=== PATIENT | male | born 1950 | race Caucasian/White ===

== ENCOUNTER → 2021-07-19 09:17 | Outpatient (BNVA) | payer MEDICARE, SELFPAY | PROVIDERS: PCP Internal Medicine; Visit Provider Surgery | DX: K62.5 Hemorrhage of anus and rectum (principal) | CPT/HCPCS: 99202 ==

== ENCOUNTER 2021-09-14 07:42 | Day surgery (SDC) | payer MEDICARE, SELFPAY ==
--- NOTE | 2021-09-13 10:30 | HO.ANESPROP2 ---
Documented by User: Haley Power NP 09/13/21 10:30 HPI - Anesthesia Eval Consult details Narrative: 70yo M for Colonoscopy PMFSH Active Problems Active Problems: All Active Problems (Updated 07/19/21 @ 10:03 by Vini Lombardo MD) Rectal bleeding (Acute) Family history of colon cancer (Acute) Hypertension (Acute) Diverticular disease (Acute) Past Medical History Medical History Diverticular disease Family history of colon cancer Hypertension Rectal bleeding Surgical History Surgical History (Updated 09/14/21 @ 08:39 by Soraya Mike MD) H/O colonoscopy Hx of right inguinal hernia repair Hx of ventral hernia repair S/P total knee replacement Social History Social History Advance Directives: No Advance Directives Information Provided: Yes Meds Allergies Allergy/AdvReac Type Severity Reaction Status Date / Time lisinopril [LISINOPRIL] Allergy Severe ANAPHYLAXIS Verified 09/14/21 08:53 valsartan [From DIOVAN] Allergy Severe ANAPHYLAXIS Verified 09/14/21 08:53 morphine [MORPHINE] AdvReac Intermediate VOMITING Verified 09/14/21 08:53 Home Medications Medication Instructions Recorded Confirmed Last Taken Type aspirin 81 mg tablet,delayed 81 mg PO DAILY 07/19/21 09/07/21 Unknown History release carvedilol 25 mg tablet 25 mg PO BID 07/19/21 09/07/21 Unknown History eplerenone 25 mg tablet 25 mg PO DAILY 07/19/21 09/07/21 Unknown History furosemide 40 mg tablet 40 mg PO DAILY 07/19/21 09/07/21 Unknown History Exam Exam Date and Time: September 13, 2021 1030 Height,Weight and Vital Signs: Weight 98.883 kg Assessment and Plan Assessment Anesthesia Assessment: Chart Reviewed Documented by User: Soraya Mike MD 09/14/21 09:21 PMFSH Active Problems Active Problems: All Active Problems (Updated 07/19/21 @ 10:03 by Vini Lombardo MD) Rectal bleeding (Acute) Family history of colon cancer (Acute) Hypertension (Acute) Diverticular disease (Acute) KOURTNEY. On CPAP Past Medical History Medical History Diverticular disease Family history of colon cancer Hypertension Rectal bleeding Family History Family history of problems with anesthesia: No Surgical History Surgical History (Updated 09/14/21 @ 08:39 by Soraya Mike MD) H/O colonoscopy Hx of right inguinal hernia repair Hx of ventral hernia repair S/P total knee replacement History of Problems with Anesthesia: Yes (Slow awakening ) Social History Social History Advance Directives: No Advance Directives Information Provided: Yes Meds Allergies Allergy/AdvReac Type Severity Reaction Status Date / Time lisinopril [LISINOPRIL] Allergy Severe ANAPHYLAXIS Verified 09/14/21 08:53 valsartan [From DIOVAN] Allergy Severe ANAPHYLAXIS Verified 09/14/21 08:53 morphine [MORPHINE] AdvReac Intermediate VOMITING Verified 09/14/21 08:53 Home Medications Medication Instructions Recorded Confirmed Last Taken Type aspirin 81 mg tablet,delayed 81 mg PO DAILY 07/19/21 09/07/21 Unknown History release carvedilol 25 mg tablet 25 mg PO BID 07/19/21 09/07/21 Unknown History eplerenone 25 mg tablet 25 mg PO DAILY 07/19/21 09/07/21 Unknown History furosemide 40 mg tablet 40 mg PO DAILY 07/19/21 09/07/21 Unknown History Exam Height,Weight and Vital Signs: Height 5 ft 7 in Weight 92.986 kg Vital Signs Temp Pulse Resp BP Pulse Ox O2 Del Method 09/14/21 08:39 97.5 F 72 18 160/92 H 95 Room Air Airway Mallampati Class: II TM Dist: >3cm Neck ROM: Full Denture: Upper Loose/Missing/Broken Teeth: No (No loose or broken lower teeth per patient ) Heart: RRR Lungs: CTAB Assessment and Plan Assessment Anesthesia Assessment: Anesthesia Plan Discussed Final Anesthetic Review Family History of Problems with Anesthesia: No History of Problems with Anesthesia: Yes (Slow awakening ) NPO: Yes ASA Class: III Final Preanesthetic Review: No Changes in Pt Med Stat, Meds/Allgs Chart Reviewed, Consent Obtained/Reviewed and Anes Risks/Benef Reviewed Patient Risk: Intermediate Procedure Risk: Low Assessment/Block/Sedation in SS: Assess/Block/Sedation-SS Anesthetic Plan Anesthetic Plan: MAC: Disposition: Standard PACU
[2021-09-14 08:39] VITALS: BP 160/92; PULSE 72; RESP 18; TEMP 36.4; O2SAT 95; BMI 32.1
[2021-09-14] MEDS: Lactated Ringers 1,000 ML 100 ML IVCONT (08:52)
--- NOTE | 2021-09-14 08:57 | MHC.SHP ---
Pre-Procedural Eval Section A Date of Service: 09/14/21 Section B Chief Complaint: bleeding Details of Present Illness: had passage of blood per rectum, FH of colon ca Relevant Family History (Specify if Yes): Yes Relevant Social History: None Present Medications: see Short Stay Collaborative assessment Medical History: Significant History (HTN, diverticular ds) Allergies: Allergies Allergy/AdvReac Type Severity Reaction Status Date / Time lisinopril [LISINOPRIL] Allergy Severe ANAPHYLAXIS Verified 09/14/21 08:53 valsartan [From DIOVAN] Allergy Severe ANAPHYLAXIS Verified 09/14/21 08:53 morphine [MORPHINE] AdvReac Intermediate VOMITING Verified 09/14/21 08:53 Review of Systems Sugical H&P ROS: Negative: Constitution, Cardiovascular, Respiratory, Neurological, Psychiatric, Hem-Onc, Allergic/Immunologic, Genitourinary, Musculoskeletal, Integumentary, Endocrine and Eyes/Ears/Nose/Throat and Yes, Specify: Gastrointestinal (hx of blood per rectum) Exam Surgical H&P Exam: Normal: HEENT, Normal: Heart, Normal: Lungs, Normal: Extremities, Normal: Abdomen, Normal: Skin and Normal: Neurological Plan Diagnosis/Plan: Unchanged I have reviewed the history and physical and performed a pertinent physical examination on my patient. No changes have occurred unless specified.
--- NOTE | 2021-09-14 09:27 | W.PM.OPN ---
Operative Note Operative Note Date of Service: 09/14/21 Narrative: Preop Diagnosis: family history of colon cancer, passage of blood per rectum Postop diagnosis: 1. Moderate to severe diverticulosis of the sigmoid 2. large hemorrhoids, mostly external Procedure: Colonoscopy Surgeon: Vini Lombardo MD The patient is a 70-year-old male who undergoes screening colonoscopies every 5 years because of a family history. He also had described passage of blood blood per rectum past. He understood the technique of colonoscopy. He was aware of the risks, benefits, and alternatives He was brought to the operating room and placed in left lateral decubitus position under monitored anesthesia care. A full digital rectal exam was done. He did have large hemorrhoids, most external with some internal. The tip of the Olympus colonoscope was gently introduced through the anal orifice advanced with insufflation all the cecum. The cecum was intubated. The cecum was identified by visualization of the ileocecal valve as well as the appendiceal orifice. The cecal mucosa was unremarkable. The scope was gradually withdrawn with careful examination of the entire colonic mucosa being done with scope withdrawal. The patient had adequate bowel prep so it was unlikely that any lesion may have been missed. There was some patchy areas of her 3 month throughout the entire colon. There were no lesions seen. There was moderate to heavy diverticulosis of the sigmoid. Rectum was unremarkable. There was note of internal and external hemorrhoids with bulky external component . The scope was then withdrawn completely with desufflation . The patient tolerated procedure well. There were no complications noted. In view of his family history, I would recommend another colonoscopy in 5 years depending on his health at that time.
[2021-09-14 09:32] VITALS: BP 117/71; PULSE 64; RESP 24; TEMP 36.9; O2SAT 95
[2021-09-14 09:47] VITALS: BP 155/84; PULSE 70; RESP 14; TEMP 36.1; O2SAT 96
== END 2021-09-14 10:15 | disposition home or self-care (01) ==
PROVIDERS: PCP Internal Medicine; Visit Provider Surgery
PROC: 0DJD8ZZ Inspection of Lower Intestinal Tract, Via Natural or Artificial Opening Endoscopic (ICD-10-PCS; CPT 45378; principal; 2021-09-14 09:00)
DX: K62.5 Hemorrhage of anus and rectum (principal); Z80.0 Family history of malignant neoplasm of digestive organs; K57.30 Diverticulosis of large intestine without perforation or abscess without bleeding; K64.8 Other hemorrhoids; K64.4 Residual hemorrhoidal skin tags; I10 Essential (primary) hypertension; Z79.82 Long term (current) use of aspirin; Z79.899 Other long term (current) drug therapy; Z88.8 Allergy status to other drugs, medicaments and biological substances
CPT/HCPCS: 45378